=== PATIENT | female | born 1960 | race Caucasian/White ===

== ENCOUNTER 2018-05-30 02:29 | Emergency (ER) | payer OTHER ==
[~2018-05-30] VITALS: Ht 167.6 cm; Wt 86.2 kg
[~2018-05-30 02:29] MED LIST: ? B/P MED; CATAPRES PO; DUONEB 2.5-0.5 M3 ML INH; EFFEXOR XR37.5 MG PO; FLEXERIL PO; LEVAQUIN 500 M500 M2 PO; LISINOPRIL-HCT1 EAC2 PO; MACROBID 100 M100 M1 PO; MONTELUKAST SOD10 MG PO; MUCINEX TA600 MG/TA2 PO; NYSTATIN 1100000 U/M SW&SWALLOW; PREDNISONE 10 M10 MG PO; PROAIR HFA8.5 GM INH; ZESTORETIC 20-1 EAC1 PO
[2018-05-30 03:07] LABS: ABSOLUTE EOSINOPHILS 0.1 thou/uL (0.0-0.7); ABSOLUTE LYMPHOCYTES 2.7 thou/uL (0.8-5.3); ABSOLUTE MONOCYTES 1.1 thou/uL (0.0-1.2); ABSOLUTE NEUTROPHILS 11.7 thou/uL (1.6-8.1); BASOPHILS 0.3 %; EOSINOPHILS 0.4 %; HEMATOCRIT 48.3 % (37.0-47.0); LYMPHOCYTES 17.4 %; MCH 31.7 pg (26.0-34.0); MCHC 33.2 g/dL (28.0-37.0); MCV 95.3 fL (80.0-100.0); MONOCYTES 7.2 %; MPV 8.7 fl. (7.2-11.1); NUCLEATED RBCS 0 /100WBC; PLATELET COUNT* 288 thou/uL (150-400); POLYS 74.7 %; RBC 5.07 mil/uL (4.20-5.00); RDW-CV 16.1 % (10.5-14.5); WBC 15.7 thou/uL (4.0-11.0)
[2018-05-30 03:27] LABS: ANION GAP 4 mmol/L (7-16); BUN 11 mg/dL (7-18); CALCIUM 8.8 mg/dL (8.5-10.1); CHLORIDE 102 mmol/L (98-107); CO2 33 mmol/L (21-32); CREATININE 0.6 mg/dL (0.6-1.3); GLUCOSE 90 mg/dL (70-99); POTASSIUM 3.7 mmol/L (3.5-5.1); SODIUM 139 mmol/L (136-145)
[2018-05-30 03:38] LABS: ALBUMIN 3.2 g/dL (3.4-5.0); ALKALINE PHOSPHATASE 86 U/L (46-116); NT-PRO BRAIN NAT PEPTIDE 63 pg/mL (<300); SGOT 24 U/L (15-37); SGPT 34 U/L (30-65); TOTAL BILIRUBIN 0.3 mg/dL (<0.1-1.0); TOTAL PROTEIN 7.2 g/dL (6.4-8.2); TROPONIN-I LEVEL <0.06 ng/mL (<0.06)
[2018-05-30 05:17] VITALS: BP 134/83
--- NOTE | 2018-05-31 14:46 | EKG ---
[place] [address] ELECTROCARDIOGRAM REPORT Name: KWASI JIMENEZ YONY Room: [facility]#: [id number] Admission: 05/30/18 Attend Phys: Discharge: 05/30/18 Date of : 56 Report #: [id number] THIS REPORT FOR: //name// [facility] ED Test Date: 2018-05-30 Test Time: 02:53:12 Pat Name: KWASI JIMENEZ Department: Room: Gender: F Etl Data Architect: BELLE Padilla : 1960 Requested By: Amy Gee Order Number: [id number] MD: Ramy Calzada Measurements Intervals [place] Rate: 91 P: 73 ID: 164 QRS: 62 QRSD: 97 T: 62 QT: 364 QTc: 448 Interpretive Statements Sinus rhythm RSR' in V1 or V2, probably normal variant Baseline wander in lead(s) I,II,aVR,V6 Compared to ECG 01/02/2016 00:36:18 Sinus tachycardia no longer present Electronically Signed On 05-31-2018 14:45:59 CDT by Ramy Calzada [email or web address] <ELECTRONICALLY SIGNED> By: Ramy Calzada MD, [facility] 05/31/18 1445 0253 0253 Ramy Calzada MD, [facility] /EPI
[2018-05-31] MEDS ORDERED: AZITHROMYCIN 2250 MG (21:15)
[2018-05-31] MEDS ORDERED: PREDNISONE 10 M10 MG (21:15)
[2018-05-31] MEDS ORDERED: VENTOLIN HFA 1818 GM INH (21:15)
[2018-05-31] MEDS ORDERED: SPIRIVA INH (21:16)
[2018-05-31] MEDS ORDERED: BREO ELLIPTA 11 EACH INH (21:16)
[2018-05-31] MEDS ORDERED: PREDNISONE50 MG PO (22:37)
== END 2018-05-30 05:14 | disposition home or self-care (01) ==
LOC: M.ERS 02:29
PROVIDERS: Emergency Medicine
DX: J44.1 Chronic obstructive pulmonary disease with (acute) exacerbation (principal); I10 Essential (primary) hypertension; F17.210 Nicotine dependence, cigarettes, uncomplicated

== ENCOUNTER 2018-05-31 20:56 | Inpatient (IN) | payer OTHER ==
[~2018-05-31] VITALS: Ht 167.6 cm; Wt 94.0 kg
[2018-05-31 21:02] VITALS: BP 139/80
[2018-05-31] MEDS ORDERED: VENTOLIN HFA 1818 GM INH (21:15)
[2018-05-31] MEDS ORDERED: PREDNISONE 10 M10 MG (21:15)
[2018-05-31] MEDS ORDERED: AZITHROMYCIN 2250 MG (21:15)
[2018-05-31] MEDS ORDERED: SPIRIVA INH (21:16)
[2018-05-31] MEDS ORDERED: BREO ELLIPTA 11 EACH INH (21:16)
[2018-05-31 21:47] LABS: HEMATOCRIT 50.7 % (37.0-47.0); HEMOGLOBIN 16.6 gm/dL (12.0-15.0); MCH 31.2 pg (26.0-34.0); MCHC 32.7 g/dL (28.0-37.0); MCV 95.6 fL (80.0-100.0); MPV 8.7 fl. (7.2-11.1); NUCLEATED RBCS 0 /100WBC; PLATELET COUNT* 368 thou/uL (150-400); RDW-CV 15.6 % (10.5-14.5); WBC 20.9 thou/uL (4.0-11.0)
[2018-05-31 21:48] LABS: BE 4.7 mmol/L (-2 to +3); HCO3 30.2 mmol/L (22.0-26.0); PCO2 47.3 mmHg (35.0-45.0); PO2 91.1 mmHg (75.0-100.0); pH 7.423 (7.340-7.450)
[2018-05-31 21:56] LABS: CALCIUM 9.1 mg/dL (8.5-10.1); CREATININE 0.8 mg/dL (0.6-1.3); POTASSIUM 3.4 mmol/L (3.5-5.1)
[2018-05-31 22:01] LABS: ALBUMIN 3.6 g/dL (3.4-5.0); TOTAL BILIRUBIN 0.4 mg/dL (<0.1-1.0); TOTAL PROTEIN 7.7 g/dL (6.4-8.2)
[2018-05-31] MEDS ORDERED: PREDNISONE50 MG PO (22:37)
[2018-05-31 22:41] LABS: ABSOLUTE LYMPHOCYTES 3.1 thou/uL (0.8-5.3); ABSOLUTE MONOCYTES 0.8 thou/uL (0.0-1.2); ABSOLUTE NEUTROPHILS 16.9 thou/uL (1.6-8.1)
[2018-05-31 22:42] LABS: PLATELET ESTIMATE ADEQUATE
[2018-05-31 23:16] VITALS: BP 116/76
[2018-05-31 23:30] VITALS: BP 118/66
[2018-06-01 04:00] VITALS: BP 110/71
--- NOTE | 2018-06-01 04:18 | NUR ---
ASSUMED PT CARE AT 1930, PT IS A&OX4, PT IS TRACING NSR ON THE MONITOR, ON 2L NC. ADMISSION ASSESSMENT COMPLETED CHARTED. IVF INFUSING PER MAR. PT IS UP AD BETO TO THE BR, PT APPEARS TO BE STABLE ON HER FEET. PT DENIES ANY PAIN OR NEEDS AT THIS TIME. RESTING IN BED. BED IN LOW POSITION, CALL LIGHT IN REACH, BED ALARM ON. HOURLY ROUNDING COMPLETED FOR PT SAFETY.
[2018-06-01 08:00] VITALS: BP 129/80
--- NOTE | 2018-06-01 08:54 | NUR ---
ASSESSMENT COMPLETED REFER TO COMPUTER CHARTING. LEAD SOFTWARE QA ENGINEER TRACKING SR. PATIENT REPORTING NO PAIN, NAUSEA OR INCREASED SHORTNESS OF BREATH. BED IN LOW AND LOCKED POSITION. CALL LIGHT WITHIN REACH. IV FLUIDS INFUSING. PATIENT ON 2 LITERS O2 VIA NASAL CANNULA. WILL CONTINUE TO MONITOR THIS SHIFT.
--- NOTE | 2018-06-01 11:32 | NUR ---
SW met with pt to complete initial assessment, introduce self, and SW role. Pt alert, oriented. Pt lives at home with her dtr and both pt and dtr work outside the home at different hours. Pt has had oxygen through [facility] since 2016. Pt's insurance changed to [employer] and pt is unsure whether she would need to change agencies. MELQUIADES called [facility] and found out that [facility] is in network with pt insurance [employer] O and will be in network with [employer] HMO eventually as well. SW to send [facility] a face sheet to provide [facility] with updated information. SW to continue to follow to assist with safe dc planning.
--- NOTE | 2018-06-01 11:50 | CON ---
[address] [address] CONSULTATION Name: KWASI JIMENEZ Room: [place] [address] ADM IN M.R.#: [id number] Admission: 05/31/18 Attend Phys: Alvino Matias MD Discharge: Date of : 56 Report #: [id number] THIS REPORT FOR: //name// CC: [facility] physician/PCP Alvino Matias DATE OF SERVICE: 06/01/2018 REQUESTING PHYSICIAN: Alvino Matias MD REASON FOR CONSULTATION: COPD exacerbation. DISCUSSION: The patient is a 58-year-old woman who has a known history of underlying COPD, though the severity is unknown. She is not steroid dependent. She, however, does have oxygen at home, but has not used it recently as she "did not need it." She began having problems late last week. She was seen by her family physician. She was given a prednisone taper as well as Zithromax. At baseline, she takes Breo 100/25 one inhalation daily, p.r.n. Ventolin inhaler and Spiriva daily. She is not on montelukast. She was seen in the Emergency Department several days ago. That was not feeling much better. They were concerned she had early pneumonia, but declined admission at that time. However, she returned to the Emergency Department yesterday evening as she was feeling much more short of breath. She was using her nebulizer, which was not providing her with enough relief. She was fairly dyspneic when she was seen in the Emergency Department. O2 saturations were in the 80s. She was tachycardic as well as being tachypneic. She had additional imaging done as well as blood gases. It did show some mild hypercapnia. She was given IV steroids, aggressive treatments were started. This morning, she is feeling much better. She has not had any fevers at home. Her sputum has been white, cloudy, at times thick. She has not been using any Mucinex. Our group has seen her previously when she was hospitalized here at [facility] that was several years ago and she was treated for COPD exacerbation at that time. SOCIAL HISTORY: Currently about a half pack of cigarettes per day. She has smoked upwards to a pack and a half per day. Her daughter is an occasional smoker. She has 2 cats and a dog at home. 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 FAMILY HISTORY: Negative for lung disease. Positive for head and neck cancer. PAST MEDICAL HISTORY: Besides her COPD, has a history of hypertension. No [place] [address] CONSULTATION Name: KWASI JIMENEZ Room: [place] [address] ADM IN M.R.#: [id number] Admission: 05/31/18 Attend Phys: Alvino Matias MD Discharge: Date of : 56 Report #: [id number] REVIEW OF SYSTEMS: A 12-point ROS was done. Note positives as above. No true chest pain, but has been tight. No nausea, vomiting, no diarrhea. She has not any hemoptysis. Denies any difficulty swallowing. No reflux type symptoms. She has not had issues with lower extremity edema, but she does note that she has "big ankles." No syncopal episodes, no palpitations. No recent skin rashes. PHYSICAL EXAMINATION: GENERAL APPEARANCE: This is a woman who looks stated age. She is resting in bed, looks fairly comfortable with O2 going via nasal cannula. She is able to speak in full sentences. HEENT: Head is normocephalic and atraumatic. Sclerae nonicteric. Mucous membranes are moist. No thrush is seen. NECK: Negative for adenopathy. No JVD is noted. HEART: Regular rate and rhythm. She is mildly tachycardic. Tones are little distant. No S3 is heard. LUNGS: Sounds are diminished with a prolonged expiratory phase. She has inspiratory and expiratory wheezes heard. Excursion is equal. She does look somewhat hyperinflated. She has no clubbing. Radial pulses are present. ABDOMEN: Mildly obese, but soft, without appreciable hepatosplenomegaly. There is no guarding or rebound tenderness. EXTREMITIES: Lower extremities are negative for edema. No calf tenderness. Scant varicosities. SKIN: Warm and dry. NEUROLOGIC: She is alert and oriented x 3. Affect appears normal. LABORATORY AND X-RAY FINDINGS: Chest x-ray shows some hyperinflation, but no definite infiltrates are noted. Arterial blood gases done on 2 liters last night, she had a pH 7.42, pCO2 of 47, pO2 of 91, bicarbonate is 30 with a saturation of 93%. Carboxyhemoglobin was 2.9%. When she was hospitalized here in December 2015, at that time, her pCO2 was as high as 58. On her chemistry, potassium is 3.4, BUN of 17, creatinine of 0.8. ProBNP was 63. Troponins unremarkable. Lactic acid 1.6. D-dimer was 0.36, which is normal. Coag studies unremarkable. White blood cell count in the ED 2 days ago was 15,700 up to 20,900 last night. Hemoglobin 16.6, hematocrit of 50.7, no left shift. IMPRESSION: 1. Chronic obstructive pulmonary disease exacerbation, it remains bronchospastic and tight, but improved from yesterday evening. Does not appear to have an active pneumonia. May have had a virus as a main trigger. 2. Acute respiratory failure superimposed on chronic respiratory failure. Baseline I suspect she may have some chronic hypoxemia. Note, her hemoglobin and hematocrit are mildly elevated. This could come from chronic hypoxemia. She has not been sleeping with her oxygen or using it. 3. Chronic obstructive pulmonary disease, severity unknown. I suspect [place] [address] CONSULTATION Name: KWASI JIMENEZ Room: [place] [address] ADM IN [facility].#: [id number] Admission: 05/31/18 Attend Phys: Alvino Matias MD Discharge: Date of : 56 Report #: [id number] 4. Ongoing tobacco abuse. 5. History of hypertension. RECOMMENDATIONS: 1. We will add Brovana since she is on Breo at home. Continue with DuoNeb every 4 hours. I will hold on inhaled steroids while she is here as she is getting IV Solu-Medrol. 2. Nicotine patch. 3. We will also add montelukast 10 mg a day. 4. Reassess O2 needs prior to discharge. Even if we can successfully wean her to room air during the day, she may need O2 at night. 5. Long-term smoking cessation is certainly imperative. 6. Also consider full PFTs in the future. 7. Hopefully she will continue to improve and can be discharged home in a timely fashion. <ELECTRONICALLY SIGNED> By: Lurdes Holt MD 06/01/18 1150 0951 [id number] Holt MD /nt
[2018-06-01 12:25] VITALS: BP 130/74
[2018-06-01 16:36] VITALS: BP 129/77
[2018-06-01 20:00] VITALS: BP 128/88
[2018-06-02] VITALS: BP 116/75
[2018-06-02 04:00] VITALS: BP 127/71
--- NOTE | 2018-06-02 05:05 | NUR ---
ASSUMED PT CARE AT 1930, PT IS A&OX4, PT IS TRACING NSR ON THE MONITOR, ON 2L NC SATTING MID TO HIGH 90'S. PT IS FEELING ANXIOUS. BUT DID SLEEP ON AND OFF THROUGHOUT THE NIGHT. IVF INFUSING PER MAR. PT IS UP AD BETO IN HER ROOM AND STABLE ON HER FEET. BED IN LOW POSITION, CALL LIGHT IN REACH, HOURLY ROUNDING COMPLETED FOR PT SAFETY.
[2018-06-02 08:00] VITALS: BP 145/81
[2018-06-02 12:28] VITALS: BP 150/89
--- NOTE | 2018-06-02 13:00 | NUR ---
VSS, ASSUMED CARE IN THE AM, ASSESSMENT PERFORMED AND CHARTED, FALL PRECAUTIONS IN PLACE NAD CALL LIGHT IN REACH, PT IS ON 2L NC AND IS TRACING SR ON THE MONITOR, SHE IS UP AD BETO AND DENIES ANY PAIN, PT GOAL IS TO SIT UP IN CHAIR AND TO IMPROVE HER BREATHING, WILL FOLLOW WITH PLAN OF CARE, ALSO PT SEEMS TO HAVE A LITTLE ANXIETY,
[2018-06-02 17:36] VITALS: BP 149/85
[2018-06-02 20:00] VITALS: BP 154/87
[2018-06-03] VITALS: BP 139/89
[2018-06-03 04:00] VITALS: BP 162/90
--- NOTE | 2018-06-03 06:53 | NUR ---
NO COMPLAINTS. SLEPT THROUGH THE NIGHT. WILL CONT. WITH PLAN OF CARE AT THIS TIME.
[2018-06-03 08:00] VITALS: BP 137/85
--- NOTE | 2018-06-03 10:03 | NUR ---
ASSESSMENT COMPLETED REFER TO COMPUTER CHARTING. TEACHER PRIVATE TRACKING SR. PATIENT REPORTING NO PAIN, NAUSEA OR SHORTNESS OF BREATH. BED IN LOW AND LOCKED POSITION. CALL LIGHT WITHIN REACH. PATIENT ON 2 LITER VIA NASAL CANNULA. IV SALINE LOCKED. PATIENT REPORTING WISHES TO DISCHARGE TODAY. WILL CONTINUE TO MONITOR THIS SHIFT.
[2018-06-03] MEDS ORDERED: AZITHROMYCIN 2250 MG PO (11:57)
[2018-06-03] MEDS ORDERED: SINGULAIR 10 MG10 M1 PO (11:57)
[2018-06-03] MEDS ORDERED: PREDNISONE 10 M10 MG PO (11:57)
[2018-06-03 16:00] VITALS: BP 159/94
[2018-06-03 20:00] VITALS: BP 159/82
--- NOTE | 2018-06-04 03:14 | NUR ---
PATIENT RESTED IN BED, NO ACUTE CHANGES. PATIENT DID NOT SHOW SIGNS OF DISTRESS. PATIENT DID NOT SHOW SIGNS OF SOB. FALL PRECAUTIONS IN PLACE, CALL LIGHT WITH IN REACH.
[2018-06-04 04:00] VITALS: BP 127/68
[2018-06-04 08:00] VITALS: BP 149/93
--- NOTE | 2018-06-04 10:11 | NUR ---
ASSUMED RESPONSIBILITY OF PT THIS AM PT IS ALERT AND ORIENTED FAINT WHEEZING AND RHONCHI UP AD BETO ON 2L NC 92% PT STATES SOME SPUTUM AT TIMES GREENISH/BROWN AND CLEAR AT TIMES 2+ EDEMA TO BILAT FEET/ANKLES TAUNT CALL LIGHT IN REACH REGULAR DIET WITH GOOD APPETITE 'READY TO DISCHARGE'
--- NOTE | 2018-06-04 16:06 | NUR ---
TRANSFER PT DOWN TO ORTHO TO ROOM 113 REPORT GIVEN TO
[2018-06-04 16:24] VITALS: BP 151/94
--- NOTE | 2018-06-04 19:08 | NUR ---
PATIENT ARRIVED TO UNIT AT 1800. ALERT AND ORIENTED X4. UP AD BETO IN ROOM. NO IV AT THIS TIME. DENIES PAIN AND NAUSEA. PATIENT HAS BEEN ORIENTED TO ROOM. VSS ON 2L O2. CALL LIGHT IS WITHIN REACH. NURSING WILL CONTINUE TO MONITOR. AGREE WITH PREVIOUS NURSES CHARTING.
[2018-06-04 22:30] VITALS: BP 142/96
[2018-06-05 01:00] VITALS: BP 128/80
--- NOTE | 2018-06-05 07:04 | NUR ---
ALERT AND ORIENTED X4. NO C/O PAIN. CONTINUES ON BREATHING TREATMENTS. UP AD BETO IN ROOM. ON O2 AT 2L/NC. HAS PRODUCTIVE COUGH. SOME WHEEZES NOTED IN LUNGS. CALL LIGHT WITHIN REACH.
[2018-06-05 08:00] VITALS: BP 148/87
[2018-06-05 12:46] VITALS: BP 148/87
[2018-06-05] MEDS ORDERED: WELLBUTRIN SR100 MG PO (13:10)
--- NOTE | 2018-06-05 21:20 | NUR ---
I ASSUMED CARE OF THE PATIENT AT 0700. SHE IS ALERT AND ORIENTED X 4 AND UP AD BETO. BED IS IN THE LOW LOCKED POSITION AND CALL LIGHT IS IN REACH. HOURLY ROUNDING WAS COMPLETED AND PATIENT NEEDS WERE MET. PAIN IS MANAGED WITH PRN MEDS. SHE WAS DISCHARGED TO HOME WITH SCRIPTS AT 1520. SCRIPTS WERE CALLED INTO [facility] AND WILL BE READY FOR P/U THURSDAY. DISCHARGE WAS EXPLAINED AND PATIENT WAS WALKED OUT.
== END 2018-06-05 15:20 | disposition home or self-care (01) | DRG 871 ==
LOC: M.ERS 20:56 → M.TBA-ER 22:50 → M.2W 22:50 → M.ORTHSURG 06-04 17:55
PROVIDERS: Personal Emergency Response Attendant; ADMIT Internal Medicine
DX: A41.9 Sepsis, unspecified organism (principal); J96.20 Acute and chronic respiratory failure, unspecified whether with hypoxia or hypercapnia; J44.1 Chronic obstructive pulmonary disease with (acute) exacerbation; I10 Essential (primary) hypertension; F17.210 Nicotine dependence, cigarettes, uncomplicated; E66.9 Obesity, unspecified; Z71.6 Tobacco abuse counseling; Z99.81 Dependence on supplemental oxygen; Z79.899 Other long term (current) drug therapy; Z80.8 Family history of malignant neoplasm of other organs or systems; Z68.33 Body mass index [BMI] 33.0-33.9, adult

== ENCOUNTER 2018-12-06 14:23 | Inpatient (IN) | payer OTHER ==
[~2018-12-06] VITALS: Ht 167.6 cm; Wt 91.6 kg
[~2018-12-06 14:23] MED LIST changes: +AZITHROMYCIN 2250 MG; +AZITHROMYCIN 2250 MG PO; +BREO ELLIPTA 11 EACH INH; +PREDNISONE 10 M10 MG; +PREDNISONE50 MG PO; +SINGULAIR 10 MG10 M1 PO; +SPIRIVA INH; +VENTOLIN HFA 1818 GM INH; +WELLBUTRIN SR100 MG PO
[2018-12-06 14:24] VITALS: BP 151/107; BP 164/140
[2018-12-06 14:44] LABS: HEMATOCRIT 52.3 % (37.0-47.0); HEMOGLOBIN 17.4 gm/dL (12.0-15.0); MCH 31.3 pg (26.0-34.0); MCHC 33.2 g/dL (28.0-37.0); MCV 94.3 fL (80.0-100.0); MPV 8.5 fl. (7.2-11.1); NUCLEATED RBCS 0 /100WBC; PLATELET COUNT* 351 thou/uL (150-400); RBC 5.55 mil/uL (4.20-5.00); RDW-CV 14.2 % (10.5-14.5); WBC 18.1 thou/uL (4.0-11.0)
[2018-12-06 14:56] LABS: ANION GAP 5 mmol/L (7-16); BUN 13 mg/dL (7-18); CALCIUM 8.9 mg/dL (8.5-10.1); CHLORIDE 96 mmol/L (98-107); CO2 36 mmol/L (21-32); CREATININE 0.9 mg/dL (0.6-1.3); GLUCOSE 190 mg/dL (70-99); POTASSIUM 4.4 mmol/L (3.5-5.1); SODIUM 137 mmol/L (136-145)
[2018-12-06 15:08] LABS: ALBUMIN 3.5 g/dL (3.4-5.0); ALKALINE PHOSPHATASE 103 U/L (46-116); NT-PRO BRAIN NAT PEPTIDE 1733 pg/mL (<300); SGOT 62 U/L (15-37); SGPT 112 U/L (30-65); TOTAL BILIRUBIN 0.4 mg/dL (<0.1-1.0); TROPONIN-I LEVEL <0.06 ng/mL (<0.06)
[2018-12-06 15:29] LABS: ABSOLUTE LYMPHOCYTES 1.4 thou/uL (0.8-5.3); ABSOLUTE MONOCYTES 0.4 thou/uL (0.0-1.2); ABSOLUTE NEUTROPHILS 16.3 thou/uL (1.6-8.1); ATYPICAL LYMPHS 2 %; PLATELET ESTIMATE ADEQUATE
--- NOTE | 2018-12-06 16:18 | NUR ---
PT ASKING FOR DINNER. INFORMED OF NPO STATUS UNTIL SEEN BY DR LI PER DR LI
[2018-12-06 18:26] VITALS: BP 152/85
[2018-12-06 18:52] VITALS: BP 180/101
--- NOTE | 2018-12-06 19:08 | NUR ---
PT TO UNIT AT APPROX 1830. NOTIFIED OF ELEVATED BP AND POSITIVE SEPSIS SCREEN.
[2018-12-06 20:00] VITALS: BP 152/85
[2018-12-06 21:03] LABS: URINE BILIRUBIN NEGATIVE (Negative); URINE BLOOD TRACE (Negative); URINE CLARITY CLEAR; URINE COLOR YELLOW; URINE GLUCOSE-RANDOM NEGATIVE (Negative); URINE KETONES NEGATIVE (Negative); URINE LEUKOCYTES-REFLEX NEGATIVE (Negative); URINE NITRITE-REFLEX NEGATIVE (Negative); URINE PROTEIN NEGATIVE (Negative); URINE UROBILINOGEN 0.2 E.U./dl (0.2-1.0)
[2018-12-06 21:45] LABS: BE 2.1 mmol/L (-2 to +3); HCO3 28.9 mmol/L (22.0-26.0); PO2 95.7 mmHg (75.0-100.0); pH 7.359 (7.340-7.450)
[2018-12-06 21:58] LABS: PCO2 52.4 mmHg (35.0-45.0)
[2018-12-07] VITALS: BP 134/67
[2018-12-07 02:14] LABS: AMP/METHAMP Negative (Negative); BARBITURATES Negative (Negative); BENZODIAZEPINES Negative (Negative); COCAINE Negative (Negative); METHADONE Negative (Negative); OPIATES Negative (Negative); PCP Negative (Negative); THC Negative (Negative)
[2018-12-07 04:00] VITALS: BP 130/75
[2018-12-07 06:05] LABS: ABSOLUTE LYMPHOCYTES 0.7 thou/uL (0.8-5.3); ABSOLUTE MONOCYTES 0.2 thou/uL (0.0-1.2); ABSOLUTE NEUTROPHILS 11.8 thou/uL (1.6-8.1); BASOPHILS 0.1 %; HEMATOCRIT 45.2 % (37.0-47.0); LYMPHOCYTES 5.9 %; MCH 31.6 pg (26.0-34.0); MCHC 33.2 g/dL (28.0-37.0); MCV 95.3 fL (80.0-100.0); MONOCYTES 1.6 %; MPV 8.6 fl. (7.2-11.1); NUCLEATED RBCS 0 /100WBC; POLYS 92.4 %; RBC 4.74 mil/uL (4.20-5.00); RDW-CV 14.4 % (10.5-14.5); WBC 12.7 thou/uL (4.0-11.0)
[2018-12-07 06:11] LABS: PLATELET COUNT* 269 thou/uL (150-400)
[2018-12-07 06:39] LABS: CALCIUM 8.3 mg/dL (8.5-10.1); CREATININE 0.8 mg/dL (0.6-1.3)
[2018-12-07 07:30] VITALS: BP 131/82
--- NOTE | 2018-12-07 07:54 | NUR ---
RECIEVED REPORT FROM [facility] PAULETTE NIEVES. SCREENED SEPSIS PER REPORT AND WAS NOTIFIED AND ORDERS WERE INITIATED ON DAY SHIFT. PT WAS MILD SOA "A LITTLE WORES THAN NORMAL BUT BETTER THAN WHEN I GOT HERE." SHE REPORTED. STATED SHE HAD BEEN TO HER PCP A FEW DAYS AGO AND STARTED PREDNISONE AND ORAL ABX- BUT STILL HAVING MORE SOA THAN NORMAL. LUNG SOUNDS WHEEZES BUT NO CRACKLES. CXR CLEAR AND PT DENIED HX OF CHF. STARTED 1L NS BOLUS PER ORDER AND NOTIFIED PT TO CALL IF SOA WORSENS OR HAS ANY CHEST PAIN. APPROX 700CC OF BOLUS INFUSED WHEN PT CALLED W SEVERE SOA AND TURNNIG PURPLE; SITTING ON EDGE OF BED LEANING FORWARD STATING "I CAN'T BREATHE." IMMEDIATELY STOPPED BOLUS. PT OT SAT HAD DROPPED FROM 93% TO 84%. TITRATED 02 TO 90% AT 10 L AND NOTIFIED RT AND NURSING FIRE PREVENTION INSPECTOR STAT. PT IMMEDIATELY SHOWED IMPOVEMENT WITH SKIN RETURNING TO NORMAL PINKISH COLOR AND IMPROVED RESPIRATORY EFFORT WITHIN 2-3 MIN OF STOPPING FLUIDS AND TITRATING O2.. PT STATED "THANKYOU I FEEL SO MUCH BETTER NOW." CXR AND ABG ORDERED AND NURSING FIRE PREVENTION INSPECTOR SPOKE W DR ORDONEZ CONCERNING THESE FINDINGS. MONITIORED PT'S VITALS AND TITRATED FLUIDS TO WHAT PT COULD TOLERATED WITH HER SOA. PT WAS ALSO GIVEN PRN ATIVAN. PT SOON RELAXED AND WAS ABLE TO FALL ASLEEP. PT CONSISTENTLY REMAINED HER "BASELINE" BREATHING PATTERN AND COMFORT, O2 TITRATED TO 4 L SPO2 LOW 90'S, AFEBRILE, BP 130/80'S, AND HR 90'S REMAINER OF SHIFT. PT HAD NO MORE RESPIRATORY DISTRESS EPISODES. ABOVE FINDINGS REPORTED TO WILLY NIEVES.
--- NOTE | 2018-12-07 08:57 | EKG ---
[place] [address] ELECTROCARDIOGRAM REPORT Name: KWASI JIMENEZ Room: [address] ADM IN .R.#: [id number] Admission: 12/06/18 Attend Phys: Case Aponte MD Discharge: Date of : 56 Report #: [id number] THIS REPORT FOR: //name// [facility] ED Test Date: 2018-12-06 Test Time: 14:43:25 Pat Name: KWASI JIMENEZ Department: Room: [facility] Gender: F Project Management Professor: OWEN : 1960 Requested By: Jonathon Luque Order Number: [id number] MD: Ramy Calzada Measurements Intervals [place] Rate: 113 P: 74 AR: 140 QRS: 74 QRSD: 107 T: 64 QT: 323 QTc: 443 Interpretive Statements Sinus tachycardia Low voltage, extremity and precordial leads RSR' in V1 or V2, right VCD or RVH Nonspecific T abnormalities, anterior leads Compared to ECG 05/30/2018 02:53:12 Low QRS voltage now present T-wave abnormality now present Sinus rhythm no longer present Electronically Signed On 12-07-2018 8:57:26 RN DIABETES EDUCATOR by Ramy Calzada [email or web address] <ELECTRONICALLY SIGNED> By: Ramy Calzada MD, [facility] 12/07/18 0857 1443 1443 Ramy Calzada MD, [facility] /EPI
--- NOTE | 2018-12-07 10:25 | NUR ---
RECEIVED PT CARE 0700. SHE IS AWAKE/ALERT AND ORIENTED X4. VSS. RESOURCE PARAPROFESSIONAL TRACING SR. SHE DENIES PAIN. O2 SAT 96% ON 4L NC. SHE STATES SHE USUALLY WEARS 2L NC AT HOME. AM ASSESSMENT CHARTED. MEDS GIVEN PER MAR. UP WITH STANDBY ASSIST. CALL LIGHT WITHIN REACH. WILL CONTINUE TO MONITOR.
[2018-12-07 12:03] VITALS: BP 127/67
--- NOTE | 2018-12-07 14:45 | NUR ---
Pt is A&O. Resides at home, her dtr lives with her. Independent and active. Pt wears home o2 through [facility] and also has a neb. No hx of HH or SNF. Goal is home at [place]. PT is recommending a RW for Pt, CM to fax referral and order to Vanessa at [facility], Pt in agreement with RW. Pt requested handicapped placard info, CM printed and provided to Pt, informed that she would need to have her PCP complete and sign the form.
--- NOTE | 2018-12-07 14:58 | 2DMMODE ---
[place] [address] 2 D/M-MODE ECHOCARDIOGRAM Name: KWASI JIMENEZ Room: [address] IN [facility]#: [id number] Admission: 12/06/18 Attend Phys: Case Aponte MD Discharge: Date of : 56 Date of Service: 12/07/18 1458 Report #: [id number] THIS REPORT FOR: //name// APPROVED REPORT Study performed: 12/07/2018 10:56:43 EXAM: Comprehensive 2D, Doppler, and color-flow Echocardiogram Patient Location: In-Patient Room #: 214 Status: routine BSA: 2.00 HR: 102 bpm BP: 131/82 mmHg Rhythm: NSR Other Information Study Quality: Good Indications COPD 2D Dimensions IVSd: 11.02 (7-11mm) LVOT Diam: 19.00 (18-24mm) LVDd: 44.18 mm PWd: 10.43 (7-11mm) Ascending Ao: 31.06 (22-36mm) LVDs: 23.99 (25-40mm) Aortic Root: 30.08 mm Volumes Left Atrial Volume (Systole) LA ESV Index: 16.90 mL/m2 Aortic Valve AoV Peak Yonas.: 1.73 m/s AO Peak Gr.: 11.98 mmHg LVOT Max P.37 mmHg AO Mean Gr.: 6.99 mmHg LVOT Mean P.95 mmHg LVOT Max V: 1.53 m/s AO V2 VTI: 29.88 cm LVOT Mean V: 1.04 m/s CARLA (VTI): 2.75 cm2 LVOT V1 VTI: 29.01 cm Mitral Valve E/A Ratio: 0.69 MV Decel. Time: 182.33 ms MV E Max Yonas.: 0.94 m/[place] [address] 2 D/M-MODE ECHOCARDIOGRAM Name: KWASI JIMENEZ Room: [address] IN .R.#: [id number] Admission: 12/06/18 Attend Phys: Case Aponte MD Discharge: Date of : 56 Date of Service: 12/07/18 1458 Report #: [id number] MV PHT: 52.88 ms MVA (PHT): 4.16 cm2 TDI E/Lateral E': 9.40 E/Medial E': 8.55 Medial E' Yonas.: 0.11 m/s Lateral E' Yonas.: 0.10 m/s Pulmonary Valve PV Peak Yonas.: 1.29 m/s PV Peak Gr.: 6.63 mmHg Tricuspid Valve RAP Estimate: 5.00 mmHg TR Peak Gr.: 30.52 mmHg RVSP: 35.00 mmHg PA Pressure: 35.00 mmHg Left Ventricle The left ventricle is normal size. There is normal LV segmental wall motion. There is normal left ventricular wall thickness. Left ventricular systolic function is normal. The left ventricular ejection fraction is within the normal range. LVEF is 65-70%. Grade I - abnormal relaxation pattern. Right Ventricle The right ventricle is normal size. The right ventricular systolic function is normal. Atria The left atrium size is normal. The right atrium size is normal. Aortic Valve The aortic valve is normal in structure. No aortic regurgitation is present. There is no aortic valvular stenosis. Mitral Valve The mitral valve is normal in structure. There is no mitral valve regurgitation noted. No evidence of mitral valve stenosis. Tricuspid Valve The tricuspid valve is normal in structure. Trace tricuspid regurgitation. Mild pulmonary hypertension. Pulmonic Valve Pulmonic valve is not well visualized. There is no pulmonic valvular [place] [address] 2 D/M-MODE ECHOCARDIOGRAM Name: KWASI JIMENEZ Room: [address] IN ..#: [id number] Admission: 12/06/18 Attend Phys: Case Aponte MD Discharge: Date of : 56 Date of Service: 12/07/18 1458 Report #: [id number] Great Vessels The aortic root is normal in size. IVC is normal in size and collapses >50% with inspiration. Pericardium There is no pericardial effusion. <Conclusion> Left ventricular systolic function is normal. The left ventricular ejection fraction is within the normal range. <ELECTRONICALLY SIGNED> By: Ramy Calzada MD, [facility] 12/07/18 1458 1458 1458 Ramy Calzada MD, [facility] /INF
[2018-12-07 16:13] VITALS: BP 133/76
[2018-12-07 19:11] LABS: GLYCOHEMOGLOBIN (HGB A1C) 5.8 % (4.8-5.6)
[2018-12-07 20:00] VITALS: BP 122/60
[2018-12-08] VITALS: BP 128/58
[2018-12-08 04:00] VITALS: BP 139/82
[2018-12-08 08:00] VITALS: BP 126/75
[2018-12-08 11:51] VITALS: BP 105/72
--- NOTE | 2018-12-08 19:17 | NUR ---
PT ALERT AND ORIENTED. PT IS ON 3 LITERS O2 BY NASAL CANNULA. RT UPPER ARM MIDLINE WITH ANTIBIITIC RUNNING. FALL RISK PRECAUITONS IN PLACE. HOURLY ROUNDING COMPLETED. WILL CONTINUE TO MONITOR.
[2018-12-08 20:00] VITALS: BP 128/72
--- NOTE | 2018-12-09 04:54 | NUR ---
ASSUMED CARE OF PT AT 1900 PT ALERT AND ORIENTED X4 VS AND ASSESSMENT STABLE. PT HAD PRN LORAZEPAM BEFORE GOING TO BED THEN SLEPT THROUGH THE NIGHT. WILL CONTINUE PLAN OF CARE.
[2018-12-09 05:03] LABS: HEMATOCRIT 45.3 % (37.0-47.0); HEMOGLOBIN 14.6 gm/dL (12.0-15.0); MCH 30.9 pg (26.0-34.0); MCHC 32.3 g/dL (28.0-37.0); MCV 95.4 fL (80.0-100.0); MPV 8.2 fl. (7.2-11.1); RBC 4.75 mil/uL (4.20-5.00); RDW-CV 14.5 % (10.5-14.5)
[2018-12-09 05:16] LABS: CALCIUM 8.4 mg/dL (8.5-10.1); CREATININE 0.7 mg/dL (0.6-1.3); MAGNESIUM 2.5 mg/dL (1.8-2.4); POTASSIUM 4.4 mmol/L (3.5-5.1)
[2018-12-09 08:00] VITALS: BP 132/80
[2018-12-09] MEDS ORDERED: PREDNISONE 10 M10 M1 PO (10:38)
[2018-12-09] MEDS ORDERED: LEVAQUIN 750 M750 MG PO (10:38)
--- NOTE | 2018-12-09 12:47 | CON ---
[address] [address] CONSULTATION Name: KWASI JIMENEZ Room: [address] IN ..#: [id number] Admission: 12/06/18 Attend Phys: Case Aponte MD Discharge: Date of : 56 Report #: [id number] THIS REPORT FOR: //name// CC: [facility] physician/PCP Case Aponte HISTORY OF PRESENT ILLNESS: This is a 58-year-old female patient with history of smoking, actively smokes around 10 cigarettes per day and history of COPD. She has oxygen at home, but she told me she does not use it regularly. She had increasing shortness of breath a couple of weeks ago that improved spontaneously, but last Thursday after she started shoveling some snow, she started feeling more shortness of breath. 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 A week ago, she saw her primary care physician who gave her a course of azithromycin and prednisone without any help in her symptoms. She ended up coming to the ER and admitted for treatment of COPD exacerbation. She denied any headache or blurring of vision. She denied any fever. She denied any PND. She denied any orthopnea. She denies any lower extremity edema or pain or weight change. The patient was hospitalized at this facility twice for COPD exacerbation. The last hospitalization was in 05/2018. She has never seen a digital campaign specialist, and she is not sure how severe her COPD is. She had rare sputum production, colored. She is not sure about the color, although it is improving. SOCIAL HISTORY: She continues to smoke 10 cigarettes per day. She has 2 cats at home. 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 FAMILY HISTORY: Positive for neck cancer. PAST MEDICAL HISTORY: COPD, hypertension. REVIEW OF SYSTEMS: A 10-point review of system was done, negative unless mentioned above. PAST SURGICAL HISTORY: No major chest surgery. FAMILY HISTORY: Reviewed with the patient, as above. PHYSICAL EXAMINATION: VITAL SIGNS: She was on 4 L oxygen with saturation more than 90%, blood pressure of 130/82, pulse rate of 104, afebrile, overweight lady with BMI of 32.8. HEENT: Head normocephalic, atraumatic. Pupils reactive to light. Oral cavity, [place] [address] CONSULTATION Name: KWASI JIMENEZ Room: [address] IN [facility]#: [id number] Admission: 12/06/18 Attend Phys: Case Aponte MD Discharge: Date of : 56 Report #: [id number] moist mucous membrane. Mallampati of 2-3. NECK: Supple. Full range of movement. No masses felt. Trachea central. External ear looks okay and normal. Nasal cavity patent passages. CHEST: Diminished air movement bilaterally, prolonged expiratory phase with expiratory wheeze. Symmetrical expansion. Nontender to palpation. HEART: S1, S2, no murmur. ABDOMEN: Soft, lax, nontender, positive bowel sounds. No masses felt. LOWER EXTREMITIES: No edema, no calf tenderness. PSYCHIATRIC: Mood and affect slightly anxious. NEUROLOGIC: Awake, alert, oriented. Moving 4 extremities spontaneously. No focal weakness. Cranial nerves are grossly normal. LYMPHATICS: No palpable lymph node. SKIN: Normal for age and race. No rash. LABORATORY DATA: Her chest x-ray in the ER did not show acute pathology. Her ABGs 7.35/52/95. This was done on 4 liter oxygen. Her D-dimer was not elevated. Her BUN of 13, creatinine of 0.8, potassium 4. Her BNP is elevated at 1700. IMPRESSION: 1. Omabt-zb-mlkcjne hypoxic and hypercapnic respiratory failure. 2. Chronic obstructive pulmonary disease exacerbation. 3. Active smoker. At this point, the patient will be on IV steroids, continue antibiotics and scheduled nebulization treatment. She is reporting improvement with IV medications. I did group counselor her about smoking cessation. She would benefit from outpatient PFT since we do not know her baseline status. At baseline, she is on Breo, Spiriva and scheduled nebulization treatment at home. Thank you for the consult. We will follow along with you. <ELECTRONICALLY SIGNED> By: Na Castro MD 12/09/18 1247 1028 1212Dcandice Castro MD /nt
[2018-12-09 13:47] VITALS: BP 132/80
[2018-12-09 14:57] VITALS: BP 132/80
--- NOTE | 2018-12-09 15:26 | NUR ---
WAREHOUSE OPERATIONS ASSOCIATE SPOKE TO THE PATIENT TO DISCUSS DISCHARGE PLANNING NEEDS. LYDIA INFORMS THAT SHE WILL NEED [facility] TO BRING A TANK TO THE HOSPITAL TO GO HOME WITH. R.T. TESTING INFORMS OF NEED TO INCREASE PATIENT LITER FLOW TO 3L AT REST AND 6L WITH ACTIVITY. D/C HEEL EMERY BUFFER CONTACTED [facility] TO INFORM OF THE NEED TO DELIVER A TANK TO THE HOSPITAL, AND FAXED THE PATIENT'S R.T. TESTING. [facility] TO DELIVER AN OXYGEN TO THE PATIENT ROOM. PATIENT'S DTR TO PROVIDE TRANSPORT HOME FOR THE PATIENT. CM WILL REMAIN AVAILABLE TO ASSIST AND FOLLOW NEEDED.
[2018-12-09 17:48] VITALS: BP 132/80
--- NOTE | 2018-12-09 17:53 | NUR ---
PT REMAINED ALERT AND ORIENTED. DISCHARGE INFORMATION AND CARE NOTES GIVEN CALLED IN PRESCRIPTIONS. IV REMOVED. OXYGEN TANK DELIVERED FOR PT TO TAKE HOME. PT BELONGINGS GATHERED. PT LEFT VIA WHEELCHAIR WITH NURSING STAFF AND DAUGHTER TO HOME.
== END 2018-12-09 17:57 | disposition home or self-care (01) | DRG 871 ==
LOC: M.ERS 14:23 → M.TBA-ER 15:34 → M.2W 15:34 → M.ORTHSURG 12-08 18:37
PROVIDERS: Emergency Medicine Emergency Medical Services; ADMIT Family Medicine
DX: A41.9 Sepsis, unspecified organism (principal); J96.21 Acute and chronic respiratory failure with hypoxia; J96.22 Acute and chronic respiratory failure with hypercapnia; I50.31 Acute diastolic (congestive) heart failure; J44.1 Chronic obstructive pulmonary disease with (acute) exacerbation; I13.0 Hypertensive heart and chronic kidney disease with heart failure and stage 1 through stage 4 chronic kidney disease, or unspecified chronic kidney disease; R65.20 Severe sepsis without septic shock; N18.2 Chronic kidney disease, stage 2 (mild); I27.20 Pulmonary hypertension, unspecified; F17.210 Nicotine dependence, cigarettes, uncomplicated; Z79.51 Long term (current) use of inhaled steroids; Z99.81 Dependence on supplemental oxygen; Z79.899 Other long term (current) drug therapy; Z80.9 Family history of malignant neoplasm, unspecified; Z71.6 Tobacco abuse counseling

== ENCOUNTER 2019-01-28 11:02 | Emergency (ER) | payer OTHER ==
[~2019-01-28] VITALS: Ht 167.6 cm; Wt 85.7 kg
[~2019-01-28 11:02] MED LIST changes: +LEVAQUIN 750 M750 MG PO; +PREDNISONE 10 M10 M1 PO
[2019-01-28 11:45] LABS: ABSOLUTE BASOPHILS 0.1 thou/uL (0.0-0.2); ABSOLUTE EOSINOPHILS 0.1 thou/uL (0.0-0.7); ABSOLUTE MONOCYTES 0.6 thou/uL (0.0-1.2); ABSOLUTE NEUTROPHILS 6.9 thou/uL (1.6-8.1); BASOPHILS 0.6 %; EOSINOPHILS 0.6 %; HEMATOCRIT 44.6 % (37.0-47.0); HEMOGLOBIN 15.2 gm/dL (12.0-15.0); LYMPHOCYTES 12.1 %; MCH 31.8 pg (26.0-34.0); MCV 93.4 fL (80.0-100.0); MONOCYTES 6.9 %; NUCLEATED RBCS 0 /100WBC; PLATELET COUNT* 287 thou/uL (150-400); POLYS 79.8 %; RBC 4.77 mil/uL (4.20-5.00); RDW-CV 15.7 % (10.5-14.5); WBC 8.7 thou/uL (4.0-11.0)
[2019-01-28 11:57] LABS: APTT 25.8 Seconds (25.0-31.3); INR 1.1; PROTIME 11.1 Seconds (9.20-11.50)
[2019-01-28 12:07] LABS: ANION GAP 6 mmol/L (7-16); BUN 5 mg/dL (7-18); CALCIUM 8.7 mg/dL (8.5-10.1); CHLORIDE 98 mmol/L (98-107); CO2 34 mmol/L (21-32); CREATININE 0.7 mg/dL (0.6-1.3); GLUCOSE 125 mg/dL (70-99); POTASSIUM 4.1 mmol/L (3.5-5.1); SODIUM 138 mmol/L (136-145); TROPONIN-I LEVEL <0.06 ng/mL (<0.06)
[2019-01-28 12:08] LABS: ALBUMIN 3.3 g/dL (3.4-5.0); ALKALINE PHOSPHATASE 100 U/L (46-116); NT-PRO BRAIN NAT PEPTIDE 51 pg/mL (<300); SGOT 26 U/L (15-37); SGPT 26 U/L (30-65); TOTAL BILIRUBIN 0.3 mg/dL (<0.1-1.0)
[2019-01-28 12:55] LABS: BE 1.3 mmol/L (-2 to +3); PCO2 43.9 mmHg (35.0-45.0); pH 7.399 (7.340-7.450)
[2019-01-28] MEDS ORDERED: MEDROLDOSEPACK PO (14:01)
[2019-01-28] MEDS ORDERED: XANAX 0.25 MG0.25 MG PO (14:01)
[2019-01-28] MEDS ORDERED: AZITHROMYCIN 2250 MG PO (14:01)
[2019-01-28 14:45] VITALS: BP 145/76
--- NOTE | 2019-01-29 17:36 | EKG ---
[place] [address] ELECTROCARDIOGRAM REPORT Name: KWASI JIMENEZ Room: [facility]#: [id number] Admission: 01/28/19 Attend Phys: Discharge: 01/28/19 Date of : 56 Report #: [id number] THIS REPORT FOR: //name// [facility] ED Test Date: 2019-01-28 Test Time: 11:15:51 Pat Name: KWASI JIMENEZ Department: Room: Gender: F Peritoneal Dialysis Registered Nurse: Randy ALEMAN : 1960 Requested By: Dago Watts Order Number: [id number] MD: Jose Ashford Measurements Intervals [place] Rate: 101 P: 73 MA: 130 QRS: 67 QRSD: 93 T: 62 QT: 363 QTc: 471 Interpretive Statements Sinus tachycardia Borderline low voltage, extremity leads Baseline wander in lead(s) III,aVL Compared to ECG 12/06/2018 14:43:25 Right ventricular hypertrophy no longer present T-wave abnormality no longer present Electronically Signed On 01-29-2019 17:35:59 CDT by Jose Ashford [email or web address] <ELECTRONICALLY SIGNED> By: Jose Ashford MD, FAC 01/29/19 1735 1115 1115 Jose Ashford MD, FAC /EPI
[2019-01-31] MEDS ORDERED: BREO ELLIPTA 21 EACH (21:15)
== END 2019-01-28 14:35 | disposition home or self-care (01) ==
LOC: M.ERS 11:02
PROVIDERS: Emergency Medicine
DX: J44.1 Chronic obstructive pulmonary disease with (acute) exacerbation (principal); I12.9 Hypertensive chronic kidney disease with stage 1 through stage 4 chronic kidney disease, or unspecified chronic kidney disease; N18.2 Chronic kidney disease, stage 2 (mild); J96.10 Chronic respiratory failure, unspecified whether with hypoxia or hypercapnia; F17.210 Nicotine dependence, cigarettes, uncomplicated

== ENCOUNTER 2019-01-31 20:39 | Inpatient (IN) | payer OTHER ==
[~2019-01-31] VITALS: Ht 167.6 cm; Wt 86.2 kg
[~2019-01-31 20:39] MED LIST changes: +MEDROLDOSEPACK PO; +XANAX 0.25 MG0.25 MG PO
[2019-01-31 20:41] VITALS: BP 173/85
[2019-01-31 20:55] LABS: ABSOLUTE BASOPHILS 0.1 thou/uL (0.0-0.2); ABSOLUTE EOSINOPHILS 0.1 thou/uL (0.0-0.7); ABSOLUTE LYMPHOCYTES 2.5 thou/uL (0.8-5.3); ABSOLUTE MONOCYTES 1.1 thou/uL (0.0-1.2); ABSOLUTE NEUTROPHILS 11.9 thou/uL (1.6-8.1); BASOPHILS 0.8 %; EOSINOPHILS 0.4 %; HEMATOCRIT 47.6 % (37.0-47.0); HEMOGLOBIN 15.7 gm/dL (12.0-15.0); LYMPHOCYTES 16.2 %; MCH 31.4 pg (26.0-34.0); MCHC 32.9 g/dL (28.0-37.0); MCV 95.5 fL (80.0-100.0); MONOCYTES 6.8 %; MPV 7.8 fl. (7.2-11.1); NUCLEATED RBCS 0 /100WBC; PLATELET COUNT* 343 thou/uL (150-400); POLYS 75.8 %; RBC 4.99 mil/uL (4.20-5.00); RDW-CV 15.9 % (10.5-14.5); WBC 15.7 thou/uL (4.0-11.0)
[2019-01-31 21:10] LABS: INR 1.1; PROTIME 11.2 Seconds (9.20-11.50)
[2019-01-31] MEDS ORDERED: BREO ELLIPTA 21 EACH INH (21:15)
[2019-01-31 21:28] LABS: BE 3.8 mmol/L (-2 to +3); pH 7.359 (7.340-7.450)
[2019-01-31 21:30] LABS: PCO2 56.2 mmHg (35.0-45.0); PO2 130.4 mmHg (75.0-100.0)
[2019-01-31 21:31] LABS: ALBUMIN 3.5 g/dL (3.4-5.0); ALKALINE PHOSPHATASE 86 U/L (46-116); ANION GAP 5 mmol/L (7-16); BUN 12 mg/dL (7-18); CALCIUM 8.8 mg/dL (8.5-10.1); CHLORIDE 100 mmol/L (98-107); CO2 33 mmol/L (21-32); CREATININE 0.7 mg/dL (0.6-1.3); GLUCOSE 110 mg/dL (70-99); NT-PRO BRAIN NAT PEPTIDE 66 pg/mL (<300); POTASSIUM 3.9 mmol/L (3.5-5.1); SGOT 32 U/L (15-37); SGPT 34 U/L (30-65); SODIUM 138 mmol/L (136-145); TOTAL BILIRUBIN 0.3 mg/dL (<0.1-1.0); TOTAL PROTEIN 7.2 g/dL (6.4-8.2); TROPONIN-I LEVEL <0.06 ng/mL (<0.06)
[2019-02-01 00:07] VITALS: BP 132/87
[2019-02-01 00:15] VITALS: BP 136/87
--- NOTE | 2019-02-01 02:36 | NUR ---
PT ADMITTED TO ROOM 103 AT 0015 FOR EXACERBATION COPD AND RIGHT LOWER LOBE PNEUMONIA. PT ON 5 LITERS O2 WITH SAT 96%. PT REPORTS BEING ANXIOUS. DR HILDA COELHO. RECIEVED ORDER FOR PRN XANAX. CALL LIGHT IN REACH. PT USING PROPERLY.
--- NOTE | 2019-02-01 05:23 | NUR ---
pt maintained o2 sat 91-95% on o2 at 5 liters per nasal canula. pt recieved IV rocephin and zithromax for treatment of right lower lobe pneumonia. pt recieved one dose of iv solumedrol en route to ED. pt's respirations even and non labored. pt recieving breathing treatments Q4 hrs. vital signs within normal limits. will continue plan of care.
[2019-02-01 08:30] VITALS: BP 119/77
[2019-02-01 16:26] VITALS: BP 121/79
--- NOTE | 2019-02-01 17:07 | EKG ---
[place] [address] ELECTROCARDIOGRAM REPORT Name: KWASI JIMENEZ Room: [address] ADM IN M.R.#: [id number] Admission: 01/31/19 Attend Phys: Luiza Shah Discharge: Date of : 56 Report #: [id number] THIS REPORT FOR: //name// [facility] ED Test Date: 2019-01-31 Test Time: 21:03:37 Pat Name: KWASI JIMENEZ Department: Room: [facility] Gender: F Bilingual Trainer: EMERITA : 1960 Requested By: Amy Gee Order Number: [id number] MD: Jose Ashford Measurements Intervals [place] Rate: 107 P: 68 DE: 144 QRS: 56 QRSD: 91 T: 58 QT: 347 QTc: 463 Interpretive Statements Sinus tachycardia RSR' in V1 or V2, right VCD or RVH Compared to ECG 01/28/2019 11:15:51 Right ventricular hypertrophy now present RSR' in V1 or V2 now present Electronically Signed On 02-01-2019 17:07:37 CDT by Jose Ashford [email or web address] <ELECTRONICALLY SIGNED> By: Jose Ashford MD, FACC 02/01/19 1707 02 02 Jose Ashford MD, FACC /EPI
--- NOTE | 2019-02-01 20:18 | NUR ---
I ASSUMED CARE OF THE PATIENT AT 0700. SHE IS ALERT AND ORIENTED X4 AND IS UP AD BETO. SHE IS ON 4-5 LITERS OF OXYGEN AT HOME AND 5 LITERS HERE. A NEW IV WAS PLACED AND CHARTED. BED IS IN THE LOW LOCKED POSITION AND CALL LIGHT WAS IN REACH. HOURLY ROUNDING WAS COMPLETED AND PATIENT NEEDS ARE MET. PAIN IS DENIED. PATIENT IS PROGRESSING TOWARD GOALS. WILL CONTINUE TO MONITOR.
[2019-02-01 21:20] VITALS: BP 119/59
[2019-02-01 23:45] VITALS: BP 126/75
[2019-02-02 04:20] LABS: MCH 31.1 pg (26.0-34.0); MPV 8.2 fl. (7.2-11.1); RBC 4.45 mil/uL (4.20-5.00)
[2019-02-02 04:26] LABS: HEMATOCRIT 42.5 % (37.0-47.0); HEMOGLOBIN 13.9 gm/dL (12.0-15.0); MCHC 32.6 g/dL (28.0-37.0); MCV 95.5 fL (80.0-100.0); NUCLEATED RBCS 0 /100WBC; PLATELET COUNT* 274 thou/uL (150-400); RDW-CV 15.9 % (10.5-14.5); WBC 11.3 thou/uL (4.0-11.0)
[2019-02-02 04:49] LABS: ANION GAP 4 mmol/L (7-16); BUN 16 mg/dL (7-18); CALCIUM 8.5 mg/dL (8.5-10.1); CHLORIDE 104 mmol/L (98-107); CO2 36 mmol/L (21-32); CREATININE 0.7 mg/dL (0.6-1.3); GLUCOSE 134 mg/dL (70-99); SODIUM 144 mmol/L (136-145); TROPONIN-I LEVEL <0.06 ng/mL (<0.06)
[2019-02-02 06:14] LABS: ABSOLUTE LYMPHOCYTES 0.5 thou/uL (0.8-5.3); ABSOLUTE MONOCYTES 0.1 thou/uL (0.0-1.2); ABSOLUTE NEUTROPHILS 10.7 thou/uL (1.6-8.1); PLATELET ESTIMATE ADEQUATE
[2019-02-02 06:15] LABS: ANISOCYTOSIS 1+; POIKILOCYTOSIS 1+
[2019-02-02 07:30] VITALS: BP 124/76
--- NOTE | 2019-02-02 07:53 | NUR ---
PATIENT HAS SLEPT WELL THROUGHOUT THE NIGHT. VSS ON 3L 02 VIA NASAL CANNULA. PATIENT UP AD-BETO AND STEADY. NO C/O PAIN. IV IN RIGHT AC-SL. BLOOD CULTURES PENDING. PATIENT INSTRUCTED TO USE CALL LIGHT WHEN NEEDING ASSISTANCE. HOURLY ROUNDS MADE. WILL CONTINUE WITH PLAN OF CARE AND NURSING TO MONITOR.
[2019-02-02 15:00] LABS: URINE BILIRUBIN NEGATIVE (Negative); URINE BLOOD NEGATIVE (Negative); URINE CLARITY CLEAR; URINE COLOR YELLOW; URINE GLUCOSE-RANDOM NEGATIVE (Negative); URINE KETONES NEGATIVE (Negative); URINE LEUKOCYTES-REFLEX NEGATIVE (Negative); URINE NITRITE-REFLEX NEGATIVE (Negative); URINE PROTEIN NEGATIVE (Negative); URINE SPECIFIC GRAVITY 1.025 (1.005-1.030); URINE UROBILINOGEN 0.2 E.U./dl (0.2-1.0)
[2019-02-02 16:50] VITALS: BP 159/82
--- NOTE | 2019-02-02 16:50 | NUR ---
SPOKE WITH PT. DAUGHTER AT BEDSIDE. 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 IT WAS TOO HARD ON HER AND SHE COULDN'T DO IT WITH HER BREATHING THE WAY IT IS. [facility] AND PORTABLES. SHE NORMALLY WEARS 3-4LITERS AT HOME. ALSO HAS A NEBULIZER. SHE IS INDEPENDENT AT HOME. DAUGHTER LIVES WITH HER AND ASSISTS HER NEEDED. SHE WAS INQUIRING ABOUT A NEBULIZER THAT PLUGS INTO THE CIGARETTE LIP OF SHANK CUTTER IN THE CAR. CM WILL CHECK WITH [facility] TO SEE IF THEY HAVE ANYTHING AVAILABLE LIKE THIS.
--- NOTE | 2019-02-02 18:04 | NUR ---
ASSUMED CARE OF PATIENT AT APPROX 0730. ALERT AND ORIENTED X4. ASSESSMENT COMPLETED AND CHARTED. VSS ON 4 LITERS 02. NO COMPLAINTS OF PAIN, NAUSEA, OR SOA. UP AD BETO IN THE ROOM. HOURLY ROUNDS COMPLETED. CALL LIGHT WITHIN REACH. NURSING WILL CONTINUE TO MONITOR.
[2019-02-02 20:00] VITALS: BP 133/79
[2019-02-03 04:08] LABS: ABSOLUTE LYMPHOCYTES 0.5 thou/uL (0.8-5.3); ABSOLUTE MONOCYTES 0.5 thou/uL (0.0-1.2); ABSOLUTE NEUTROPHILS 13.8 thou/uL (1.6-8.1); BASOPHILS 0.1 %; HEMATOCRIT 42.1 % (37.0-47.0); HEMOGLOBIN 13.8 gm/dL (12.0-15.0); LYMPHOCYTES 3.1 %; MCH 31.4 pg (26.0-34.0); MCHC 32.7 g/dL (28.0-37.0); MONOCYTES 3.3 %; MPV 8.1 fl. (7.2-11.1); NUCLEATED RBCS 0 /100WBC; PLATELET COUNT* 289 thou/uL (150-400); POLYS 93.5 %; RBC 4.39 mil/uL (4.20-5.00); WBC 14.8 thou/uL (4.0-11.0)
[2019-02-03 04:20] LABS: CALCIUM 8.4 mg/dL (8.5-10.1); CREATININE 0.6 mg/dL (0.6-1.3); POTASSIUM 4.2 mmol/L (3.5-5.1)
--- NOTE | 2019-02-03 05:25 | NUR ---
ASSUMED CARE OF PT AT 1900 PT ALERT AND ORIENTED X4 VS AND ASSESSMENT STABLE. PT DENIED ANY COMPLAINTS AND SLEPT THROUGH THE NIGHT. WILL CONTINUE PLAN OF CARE.
[2019-02-03 07:40] VITALS: BP 151/85
[2019-02-03] MEDS ORDERED: DOXYCYCLINE 10100 MG PO (08:20)
[2019-02-03] MEDS ORDERED: PREDNISONE 10 M10 MG PO (08:20)
[2019-02-03] MEDS ORDERED: IPRAT-ALBUT 0.5-3 ML INH (08:20)
[2019-02-03] MEDS ORDERED: PULMICORT0.5 MG/22 INH (08:20)
[2019-02-03 12:28] VITALS: BP 151/85
--- NOTE | 2019-02-03 12:40 | NUR ---
TELEPHONE ORDER SUPERVISOR FAXED PATIENT'S D/C ORDERS TO [facility]. D/C DATA INTEGRATION DEVELOPER SPOKE TO [facility] TO DISCUSS AVAILABILITY OF PORTABLE NEBULIZER FOR THE PATIENT, AND HENRY INFORMS THAT THE PORTABLE NEBULIZER IS AVAUILABLE IF THE PATIENT'S NEBULIZER IS 5 YEARS OLD, OTHERWISE THE PATIENT WOULD NEED PAY FOR IT [id number]. D/C DATA INTEGRATION DEVELOPER INFORMED THE PATIENT OF THIS INFO AND SHE IS IN AGREEMENT. D/C DATA INTEGRATION DEVELOPER INFORMED DR BLOCK OF THE NEED FOR AN ORDER FOR THE PORTABLE NEBULIZER. CM WILL REMAIN AVAILABLE TO ASSIST AND FOLLOW NEEDED.
--- NOTE | 2019-02-03 15:34 | NUR ---
PT.TO DISCHARGE TODAY. DOES NOT HAVE PORTABLE TANK IN ROOM . JUAN DIEGO CALLED [facility] [phone]. THEY WILL DELIVER A PORTABLE TO PT.ROOM WITHIN THE HR.
--- NOTE | 2019-02-03 15:59 | NUR ---
ASSUMED CARE OF PATIENT AT APPROX 0730. ALERT AND ORIENTED X4. ASSESSMENT COMPLETED AND CHARTED. VSS ON 4 LITERS 02. NO COMPLAINTS OF PAIN, NAUSEA, OR SOA. ANXIETY MANAGED WITH ORAL MEDICATION. ANTIBIOTICS INFUSED AND RESPIRATOEY TREATMENTS GIVEN ORDERED. PATIENT DISCHARGED AT 1545 WITH ALL PERSONAL BELONGINGS, PORTABLE OXYGEN TANK BROUGHT BY ALEJANDRO, PRESCRIPTIONS AND DISCHARGE INFORMATION.
== END 2019-02-03 15:45 | disposition home health service (06) | DRG 871 ==
LOC: M.ERS 20:39 → M.ORTHSURG 22:03 → M.TBA-ER 22:03 → M.ORTHSURG 02-01 00:12
PROVIDERS: Emergency Medicine; Internal Medicine; ADMIT Internal Medicine
DX: A41.9 Sepsis, unspecified organism (principal); J15.6 Pneumonia due to other Gram-negative bacteria; J96.21 Acute and chronic respiratory failure with hypoxia; J96.22 Acute and chronic respiratory failure with hypercapnia; J44.1 Chronic obstructive pulmonary disease with (acute) exacerbation; I10 Essential (primary) hypertension; F17.210 Nicotine dependence, cigarettes, uncomplicated; F41.9 Anxiety disorder, unspecified; Z91.19 Patient's noncompliance with other medical treatment and regimen; Z79.899 Other long term (current) drug therapy

== ENCOUNTER 2019-08-22 17:38 | Emergency (ER) | payer OTHER ==
[~2019-08-22] VITALS: Ht 167.6 cm; Wt 87.1 kg
[~2019-08-22 17:38] MED LIST changes: +BREO ELLIPTA 21 EACH INH; +DOXYCYCLINE 10100 MG PO; +IPRAT-ALBUT 0.5-3 ML INH; +PULMICORT0.5 MG/22 INH
[2019-08-22] MEDS ORDERED: ASPIR 8181 MG PO (17:57)
[2019-08-22 18:23] LABS: ABSOLUTE EOSINOPHILS 0.1 thou/uL (0.0-0.7); ABSOLUTE LYMPHOCYTES 0.9 thou/uL (0.8-5.3); ABSOLUTE MONOCYTES 1.2 thou/uL (0.0-1.2); ABSOLUTE NEUTROPHILS 13.4 thou/uL (1.6-8.1); BASOPHILS 0.3 %; EOSINOPHILS 0.8 %; HEMATOCRIT 46.6 % (37.0-47.0); HEMOGLOBIN 15.9 gm/dL (12.0-15.0); MCHC 34.1 g/dL (28.0-37.0); MCV 93.9 fL (80.0-100.0); MONOCYTES 7.9 %; MPV 8.6 fl. (7.2-11.1); NUCLEATED RBCS 0 /100WBC; PLATELET COUNT* 202 thou/uL (150-400); RBC 4.96 mil/uL (4.20-5.00); RDW-CV 15.8 % (10.5-14.5); WBC 15.8 thou/uL (4.0-11.0)
[2019-08-22 18:30] LABS: ANION GAP 8 mmol/L (7-16); BUN 5 mg/dL (7-18); CALCIUM 8.7 mg/dL (8.5-10.1); CHLORIDE 100 mmol/L (98-107); CO2 30 mmol/L (21-32); CREATININE 0.6 mg/dL (0.6-1.3); GLUCOSE 112 mg/dL (70-99); POTASSIUM 3.7 mmol/L (3.5-5.1); SODIUM 138 mmol/L (136-145)
[2019-08-22 18:42] LABS: ALBUMIN 2.9 g/dL (3.4-5.0); ALKALINE PHOSPHATASE 120 U/L (46-116); LIPASE 84 U/L (73-393); SGOT 24 U/L (15-37); SGPT 28 U/L (30-65); TOTAL BILIRUBIN 0.5 mg/dL (<0.1-1.0); TOTAL PROTEIN 7.1 g/dL (6.4-8.2); TROPONIN-I LEVEL <0.06 ng/mL (<0.06)
[2019-08-22] MEDS ORDERED: KEFLEX500 M1 PO (18:53)
[2019-08-22] MEDS ORDERED: PREDNISONE 20 M20 MG PO (18:53)
[2019-08-22] MEDS ORDERED: IPRAT-ALBUT 0.5-3 ML INH (18:53)
[2019-08-22 19:06] VITALS: BP 139/67
--- NOTE | 2019-08-23 11:08 | EKG ---
[place] [address] ELECTROCARDIOGRAM REPORT Name: BARBARAKWASI YONY Room: [facility]#: [id number] Admission: 08/22/19 Attend Phys: Discharge: 08/22/19 Date of : 56 Report #: [id number] THIS REPORT FOR: //name// [facility] ED Test Date: 2019-08-22 Test Time: 18:40:34 Pat Name: KWASI JIMENEZ Department: Room: Gender: F Physician Specialist: BREANA : 1960 Requested By: Gary Panda Order Number: [id number] MD: Jose Ashford Measurements Intervals [place] Rate: 122 P: 67 FL: 167 QRS: 71 QRSD: 82 T: 88 QT: 317 QTc: 452 Interpretive Statements Sinus tachycardia Multiple atrial premature complexes Nonspecific T abnrm, anterolateral leads Compared to ECG 01/31/2019 21:03:37 Right ventricular hypertrophy no longer present Electronically Signed On 08-23-2019 11:08:31 CDT by Jose Ashford [email or web address] <ELECTRONICALLY SIGNED> By: Jose Ashford MD, [facility] 08/23/19 1108 1840 1840 Jose Ashford MD, [facility] /EPI
== END 2019-08-22 19:08 | disposition home or self-care (01) ==
LOC: M.ERS 17:38
PROVIDERS: Physician Assistant
DX: J44.1 Chronic obstructive pulmonary disease with (acute) exacerbation (principal); I10 Essential (primary) hypertension; F17.210 Nicotine dependence, cigarettes, uncomplicated; Z88.6 Allergy status to analgesic agent; Z98.890 Other specified postprocedural states

== ENCOUNTER 2019-10-14 14:19 | Emergency (ER) | payer OTHER ==
[~2019-10-14] VITALS: Ht 167.6 cm; Wt 86.6 kg
[~2019-10-14 14:19] MED LIST changes: +ASPIR 8181 MG PO; +KEFLEX500 M1 PO; +PREDNISONE 20 M20 MG PO
[2019-10-14] MEDS ORDERED: XANAX1 MG PO (14:35)
[2019-10-14 14:59] LABS: ABSOLUTE BASOPHILS 0.1 thou/uL (0.0-0.2); ABSOLUTE EOSINOPHILS 0.1 thou/uL (0.0-0.7); ABSOLUTE LYMPHOCYTES 1.1 thou/uL (0.8-5.3); ABSOLUTE MONOCYTES 0.6 thou/uL (0.0-1.2); ABSOLUTE NEUTROPHILS 7.2 thou/uL (1.6-8.1); BASOPHILS 0.7 %; EOSINOPHILS 1.6 %; HEMATOCRIT 50.8 % (37.0-47.0); HEMOGLOBIN 17.1 gm/dL (12.0-15.0); LYMPHOCYTES 12.1 %; MCH 31.9 pg (26.0-34.0); MCHC 33.7 g/dL (28.0-37.0); MCV 94.6 fL (80.0-100.0); MONOCYTES 6.8 %; MPV 9.3 fl. (7.2-11.1); NUCLEATED RBCS 0 /100WBC; PLATELET COUNT* 202 thou/uL (150-400); POLYS 78.8 %; RBC 5.37 mil/uL (4.20-5.00); RDW-CV 15.8 % (10.5-14.5); WBC 9.1 thou/uL (4.0-11.0)
[2019-10-14 15:10] LABS: CALCIUM 8.6 mg/dL (8.5-10.1); CREATININE 0.6 mg/dL (0.6-1.3); POTASSIUM 3.7 mmol/L (3.5-5.1)
[2019-10-14 15:27] LABS: ALBUMIN 3.3 g/dL (3.4-5.0); MAGNESIUM 1.9 mg/dL (1.8-2.4); TOTAL BILIRUBIN 0.6 mg/dL (<0.1-1.0); TOTAL PROTEIN 7.3 g/dL (6.4-8.2)
[2019-10-14] MEDS ORDERED: PREDNISONE50 MG PO (15:38)
[2019-10-14] MEDS ORDERED: VENTOLIN HFA 1818 GM INH (15:38)
[2019-10-14] MEDS ORDERED: ALBUTEROL2.5 MG/31 INH (15:38)
[2019-10-14 16:26] VITALS: BP 154/80
--- NOTE | 2019-10-15 10:19 | EKG ---
[place] [address] ELECTROCARDIOGRAM REPORT Name: BARBARAKWASI YONY Room: [facility]#: [id number] Admission: 10/14/19 Attend Phys: Discharge: 10/14/19 Date of : 56 Report #: [id number] THIS REPORT FOR: //name// [facility] ED Test Date: 2019-10-14 Test Time: 14:59:35 Pat Name: KWASI JIMENEZ Department: Room: Gender: F Bulk Coolers Installer: YUMIKO : 1960 Requested By: Jonathon Luque Order Number: [id number] MD: Ramy Calzada Measurements Intervals [place] Rate: 91 P: 57 DC: 153 QRS: 53 QRSD: 86 T: 53 QT: 371 QTc: 457 Interpretive Statements Sinus rhythm RSR' in V1 or V2, probably normal variant Compared to ECG 08/22/2019 18:40:34 RSR' in V1 or V2 now present Sinus tachycardia no longer present Atrial premature complex(es) no longer present Electronically Signed On 10-15-2019 10:19:24 SENIOR INSIGHT MANAGER by Ramy Calzada [email or web address] <ELECTRONICALLY SIGNED> By: Ramy Calzada MD, FACC 10/15/19 1019 1459 1459 Ramy Calzada MD, [facility] /EPI
== END 2019-10-14 16:27 | disposition home or self-care (01) ==
LOC: M.ERS 14:19
PROVIDERS: Emergency Medicine Emergency Medical Services
DX: J44.1 Chronic obstructive pulmonary disease with (acute) exacerbation (principal); F17.210 Nicotine dependence, cigarettes, uncomplicated; I10 Essential (primary) hypertension; J96.10 Chronic respiratory failure, unspecified whether with hypoxia or hypercapnia; Z88.6 Allergy status to analgesic agent

== ENCOUNTER 2019-11-06 16:58 | Emergency (ER) | payer OTHER ==
[~2019-11-06] VITALS: Ht 167.6 cm; Wt 81.7 kg
[~2019-11-06 16:58] MED LIST changes: +ALBUTEROL2.5 MG/31 INH; +XANAX1 MG PO
[2019-11-06 17:50] LABS: BE 6.5 mmol/L (-2 to +3); PO2 80.2 mmHg (75.0-100.0); pH 7.355 (7.340-7.450)
[2019-11-06 17:52] LABS: PCO2 63.9 mmHg (35.0-45.0)
[2019-11-06 18:07] LABS: ABSOLUTE LYMPHOCYTES 0.8 thou/uL (0.8-5.3); ABSOLUTE MONOCYTES 0.7 thou/uL (0.0-1.2); ABSOLUTE NEUTROPHILS 4.3 thou/uL (1.6-8.1); BASOPHILS 0.5 %; EOSINOPHILS 0.8 %; HEMATOCRIT 51.1 % (37.0-47.0); LYMPHOCYTES 14.3 %; MCH 31.1 pg (26.0-34.0); MCHC 33.3 g/dL (28.0-37.0); MCV 93.6 fL (80.0-100.0); MONOCYTES 11.7 %; MPV 8.7 fl. (7.2-11.1); NUCLEATED RBCS 0 /100WBC; PLATELET COUNT* 162 thou/uL (150-400); POLYS 72.7 %; RBC 5.46 mil/uL (4.20-5.00); RDW-CV 15.2 % (10.5-14.5); WBC 5.9 thou/uL (4.0-11.0)
[2019-11-06 18:17] LABS: CALCIUM 8.9 mg/dL (8.5-10.1); CREATININE 0.6 mg/dL (0.6-1.3); POTASSIUM 3.8 mmol/L (3.5-5.1)
[2019-11-06 18:31] LABS: TOTAL BILIRUBIN 0.4 mg/dL (<0.1-1.0); TOTAL PROTEIN 6.9 g/dL (6.4-8.2)
[2019-11-06] MEDS ORDERED: SPIRIVA18 MCG INH (19:06)
[2019-11-06] MEDS ORDERED: PREDNISONE 10 M10 MG PO (19:06)
[2019-11-06] MEDS ORDERED: ALBUTEROL2.5 MG/31 INH (19:06)
[2019-11-06] MEDS ORDERED: PROAIR HFA8.5 GM INH (19:06)
[2019-11-06] MEDS ORDERED: HYDROXYZINE HCL50 MG PO (19:06)
[2019-11-06 19:26] VITALS: BP 136/81
--- NOTE | 2019-11-07 14:00 | EKG ---
[place] [address] ELECTROCARDIOGRAM REPORT Name: KWASI JIMENEZ Room: [facility]#: [id number] Admission: 11/06/19 Attend Phys: Discharge: 11/06/19 Date of : 56 Report #: [id number] THIS REPORT FOR: //name// [facility] ED Test Date: 2019-11-06 Test Time: 17:27:12 Pat Name: KWASI JIMENEZ Department: Room: Gender: F Bulk Delivery Driver: : 1960 Requested By: Selena Torres Order Number: [id number] Dinah MD: Ramy Calzada Measurements Intervals [place] Rate: 106 P: 71 MT: 144 QRS: 91 QRSD: 101 T: 56 QT: 361 QTc: 480 Interpretive Statements Sinus tachycardia incomplete RBBB Ventricular premature complex Compared to ECG 10/14/2019 14:59:35 Ventricular premature complex(es) now present Sinus rhythm no longer present Electronically Signed On 11-07-2019 14:00:21 RAMP BOSS by Ramy Calzada [email or web address] <ELECTRONICALLY SIGNED> By: Ramy Calzada MD, [facility] 11/07/19 1400 1727 172 Ramy Calzada MD, [facility] /EPI
== END 2019-11-06 19:31 | disposition home or self-care (01) ==
LOC: M.ERS 16:58
PROVIDERS: Physician Assistant
DX: J44.1 Chronic obstructive pulmonary disease with (acute) exacerbation (principal); I10 Essential (primary) hypertension; F41.9 Anxiety disorder, unspecified; F17.210 Nicotine dependence, cigarettes, uncomplicated; Z98.890 Other specified postprocedural states

== ENCOUNTER 2019-11-16 13:01 | Emergency (ER) | payer OTHER ==
[~2019-11-16] VITALS: Ht 167.6 cm; Wt 81.7 kg
[~2019-11-16 13:01] MED LIST changes: +HYDROXYZINE HCL50 MG PO; +SPIRIVA18 MCG INH
[2019-11-16] MEDS ORDERED: PROAIR HFA8.5 GM INH (13:35)
[2019-11-16] MEDS ORDERED: IPRAT-ALBUT 0.5-3 ML INH (13:37)
[2019-11-16] MEDS ORDERED: ALBUTEROL2.5 MG/31 INH (13:37)
[2019-11-16] MEDS ORDERED: PREDNISONE 10 M10 MG PO (14:03)
[2019-11-16] MEDS ORDERED: XANAX 0.5 MG0.5 MG PO (14:03)
[2019-11-16 14:06] VITALS: BP 162/70
== END 2019-11-16 14:07 | disposition home or self-care (01) ==
LOC: M.ERS 13:01
DX: J44.9 Chronic obstructive pulmonary disease, unspecified (principal); F41.9 Anxiety disorder, unspecified; Z76.0 Encounter for issue of repeat prescription; I10 Essential (primary) hypertension; F17.210 Nicotine dependence, cigarettes, uncomplicated; Z98.890 Other specified postprocedural states

== ENCOUNTER 2020-08-28 15:57 | Inpatient (IN) | payer OTHER ==
[2020-08-28] VITALS (18 sets, daily range): BP systolic 89–184; BP diastolic 51–110
[~2020-08-28] VITALS: Ht 162.6 cm; Wt 73.1 kg
[~2020-08-28 15:57] MED LIST changes: +XANAX 0.5 MG0.5 MG PO
[2020-08-28 16:29] LABS: HEMATOCRIT 54.8 % (37.0-47.0); HEMOGLOBIN 17.8 gm/dL (12.0-15.0); MCH 31.8 pg (26.0-34.0); MCHC 32.5 g/dL (28.0-37.0); MCV 97.7 fL (80.0-100.0); MPV 8.8 fl. (7.2-11.1); NUCLEATED RBCS 0 /100WBC; PLATELET COUNT* 118 thou/uL (150-400); RBC 5.61 mil/uL (4.20-5.00); RDW-CV 17.2 % (10.5-14.5); WBC 9.1 thou/uL (4.0-11.0)
[2020-08-28 16:39] LABS: BUN 5 mg/dL (7-18); CALCIUM 8.5 mg/dL (8.5-10.1); CHLORIDE 100 mmol/L (98-107); CREATININE 0.5 mg/dL (0.6-1.3); GLUCOSE 119 mg/dL (70-99); POTASSIUM 4.1 mmol/L (3.5-5.1); SODIUM 144 mmol/L (136-145)
[2020-08-28 16:40] LABS: APTT 28.2 Seconds (25.0-31.3); INR 1.4; PROTIME 14.6 Seconds (9.20-11.50)
[2020-08-28 16:44] LABS: BE 7.1 mmol/L (-2 to +3)
[2020-08-28 16:46] LABS: CO2 > 45 mmol/L (21-32)
[2020-08-28 16:48] LABS: PCO2 142.1 mmHg (35.0-45.0); pH 7.113 (7.340-7.450)
[2020-08-28 16:49] LABS: PO2 347.2 mmHg (75.0-100.0)
[2020-08-28 16:50] LABS: ALBUMIN 3.2 g/dL (3.4-5.0); ALKALINE PHOSPHATASE 93 U/L (46-116); LIPASE 143 U/L (73-393); NT-PRO BRAIN NAT PEPTIDE 229 pg/mL (<300); SGOT 17 U/L (15-37); SGPT 19 U/L (30-65); TOTAL BILIRUBIN 0.6 mg/dL (<0.1-1.0)
[2020-08-28 17:33] LABS: ABSOLUTE LYMPHOCYTES 0.9 thou/uL (0.8-5.3); ABSOLUTE MONOCYTES 0.4 thou/uL (0.0-1.2); ABSOLUTE NEUTROPHILS 7.8 thou/uL (1.6-8.1); PLATELET ESTIMATE DECREASED
[2020-08-28] MEDS ORDERED: ZOLOFT 50 MG TA50 M1 PO (21:00)
[2020-08-28] MEDS ORDERED: XANAX1 MG PO (21:00)
[2020-08-28] MEDS ORDERED: ULTRAM 50MG TAB50 MG PO (21:01)
[2020-08-28 21:34] LABS: BE 7.9 mmol/L (-2 to +3); PO2 94.1 mmHg (75.0-100.0); pH 7.402 (7.340-7.450)
[2020-08-28 21:39] LABS: PCO2 57.8 mmHg (35.0-45.0)
[2020-08-29] VITALS (66 sets, daily range): BP systolic 89–149; BP diastolic 54–85
[2020-08-29 05:41] LABS: HEMATOCRIT 47.8 % (37.0-47.0); MCHC 32.3 g/dL (28.0-37.0); RBC 4.98 mil/uL (4.20-5.00); RDW-CV 17.2 % (10.5-14.5); WBC 6.5 thou/uL (4.0-11.0)
[2020-08-29 05:47] LABS: HEMOGLOBIN 15.4 gm/dL (12.0-15.0)
[2020-08-29 05:55] LABS: ALBUMIN 2.4 g/dL (3.4-5.0); CALCIUM 7.7 mg/dL (8.5-10.1); CREATININE 0.5 mg/dL (0.6-1.3); MAGNESIUM 1.5 mg/dL (1.8-2.4); POTASSIUM 3.8 mmol/L (3.5-5.1); TOTAL BILIRUBIN 0.8 mg/dL (<0.1-1.0)
[2020-08-29 15:02] LABS: BE 4.5 mmol/L (-2 to +3); PCO2 41.2 mmHg (35.0-45.0); pH 7.461 (7.340-7.450)
[2020-08-29 15:04] LABS: PO2 54.5 mmHg (75.0-100.0)
--- NOTE | 2020-08-29 17:45 | EKG ---
[place] [address] ELECTROCARDIOGRAM REPORT Name: MEGANVALERIMAYIKWASI YONY Room: [address] ADM IN .R.#: [id number] Admission: 08/28/20 Attend Phys: Mayra Bass, Discharge: Date of : 56 Date of Service: 08/28/20 1621 Report #: [id number] THIS REPORT FOR: //name// [facility] ED Test Date: 2020-08-28 Test Time: 16:21:21 Pat Name: KWASI JIMENEZ Department: Room: [facility] Gender: F Wool Washer Feeder: TDS : 1960 Requested By: Jamar Brunson Order Number: [id number] MD: Jose Ashford Measurements Intervals [place] Rate: 100 P: 85 WI: 159 QRS: 62 QRSD: 80 T: 50 QT: 340 QTc: 439 Interpretive Statements Sinus tachycardia Low voltage, extremity leads Incomplete right bundle branch block Baseline wander in lead(s) II,III,aVR,aVL,aVF Compared to ECG 11/06/2019 17:27:12 Low QRS voltage now present Ventricular premature complex(es) no longer present Electronically Signed On 08-29-2020 17:44:56 CDT by Jose Ashford [email or web address] <ELECTRONICALLY SIGNED> By: Jose Ashford MD, FACC 08/29/20 1744 20 162 Jose Ashford MD, FACC /EPI
[2020-08-30] VITALS (33 sets, daily range): BP systolic 114–177; BP diastolic 63–112
[2020-08-30 07:08] LABS: HEMATOCRIT 52.1 % (37.0-47.0); HEMOGLOBIN 17.1 gm/dL (12.0-15.0); MCH 31.1 pg (26.0-34.0); MCHC 32.8 g/dL (28.0-37.0); MCV 94.8 fL (80.0-100.0); MPV 9.4 fl. (7.2-11.1); RBC 5.5 mil/uL (4.20-5.00); RDW-CV 17.3 % (10.5-14.5); WBC 6.7 thou/uL (4.0-11.0)
[2020-08-30 07:11] LABS: CALCIUM 8.2 mg/dL (8.5-10.1); CREATININE 0.6 mg/dL (0.6-1.3); POTASSIUM 3.7 mmol/L (3.5-5.1)
--- NOTE | 2020-08-30 12:19 | CON ---
[address] [address] CONSULTATION Name: KWASI JIMENEZ Room: [address] IN M.R.#: [id number] Admission: 08/28/20 Attend Phys: Mayra Bass MD Discharge: Date of : 56 Report #: [id number] THIS REPORT FOR: //name// cc: ZOE Pagan family physician/PCP ZOE Pagan family physician/PCP ~ THIS REPORT FOR: //name// DATE OF SERVICE: 08/29/2020 CONSULT REQUESTED BY: Dr. Bass. INDICATION FOR CONSULTATION: Vgujg-xj-mdlkszu hypercarbic and hypoxemic respiratory failure. HISTORY OF PRESENT ILLNESS: This is a 60-year-old female with extensive history of smoking, admitted with acute hypercarbic respiratory failure, is on the ventilator, reported to have presented with acute shortness of breath after being sick for a few days. Overnight, has been on Versed, fentanyl as well as propofol infusions and initially was hypotensive, now blood pressure is within the normal range. She has been fluid resuscitated with normal saline. The patient is currently stable on the ventilator. The patient is unable to provide a further history or review of systems. PAST MEDICAL HISTORY: COPD, on oxygen long-term, unknown as to whether she is on any positive airway pressure therapy at home. Hypertension, , previous echo shows normal left ventricular ejection fraction without significant elevation in right heart pressures. SOCIAL HISTORY: Extensive history of smoking, unable to quantify exactly at this time. No known history of heavy alcohol use or illegal drug use. CURRENT MEDICATIONS: List in [facility] reviewed. HOME MEDICATIONS: List in [facility] reviewed. FAMILY HISTORY: No known pertinent family history. PHYSICAL EXAMINATION: GENERAL: The patient is on Versed and fentanyl as well as propofol infusion. She is on the ventilator. She is oxygenating and ventilating adequately with 40% FiO2, assist control ventilation, PEEP of 5. Ventilator settings in [facility] reviewed. VITAL SIGNS: In [facility] reviewed. HEENT: There is an endotracheal tube in place. Head is normocephalic and atraumatic. I am uncertain as to where the endotracheal tube [place] [address] CONSULTATION Name: KWASI JIMENEZ Room: [address] IN [facility].#: [id number] Admission: 08/28/20 Attend Phys: Mayra Bass MD Discharge: Date of : 56 Report #: [id number] NECK: Does not show raised JVP, asymmetry, mass or lymph nodes. CHEST: Symmetrical expansion on inspection and palpation. On auscultation, breath sounds bilaterally equal, decreased. No added sounds. HEART: Regular, no murmur. ABDOMEN: Soft and nontender. EXTREMITIES: Lower extremities show no edema, no calf tenderness. SKIN: Dry and intact. NEUROLOGICAL: Moves all extremities bilaterally equally and spontaneously with no focal deficit identified. LABORATORY DATA: The patient's chest x-ray initially did show a radiopaque density in the right lung base consistent with an infiltrate or atelectasis, which improved subsequently making it unlikely that there is pneumonia. Chest x-ray looks worse today. I feel there is likely secondary to mild increase in pulmonary vascular congestion. Viral or atypical pneumonia can also lead to this picture. Lab work including arterial blood gases in [facility] reviewed. ASSESSMENT AND PLAN: 1. Fzxxb-tn-vtzzvml hypoxemic and hypercarbic respiratory failure. The patient is currently stable on the ventilator. I could have considered extubating her today; however, her COVID PCR is pending. The patient currently is not in a negative pressure room. If we were to extubate her, she will likely need a BiPAP today, which is not a viable option. Therefore, I decided to leave her on the ventilator. I would like to try to take her off the Versed infusion. We will start Precedex. We will continue with fentanyl. If these were not sufficient to that as long as she is not hypotensive, she could be given propofol as well. We will give her p.r.n. Versed. We will reassess tomorrow for extubation. We will do an arterial blood gas today. We will request the radiologist to comment on the ET tube position. 2. Chronic obstructive pulmonary disease exacerbation. Current dose of steroids as well as nebulized bronchodilators. 3. Pulmonary infiltrates. I feel these are more likely secondary to increase in pulmonary vascular congestion than actual pneumonia. Regardless, I agree with covering with Zithromax as well as ceftriaxone and checking a COVID PCR. We will do a sputum culture and nasal swab for methicillin-resistant Staphylococcus aureus as well. I discontinued her saline. In case she was to become hypotensive, she will tolerate fluids while she is on the ventilator if needed. 4. Evaluation for thromboembolic phenomena. We will do a D-dimer. If elevated, then we will assess as to whether we need to evaluate further. Once she is off of COVID isolation, may also consider obtaining an echo. 5. Deep venous thrombosis prophylaxis, Lovenox. 6. Gastrointestinal prophylaxis, Protonix. The patient is [place] [address] CONSULTATION Name: KWASI JIMENEZ Room: [address]#: [id number] Admission: 08/28/20 Attend Phys: Mayra Bass MD Discharge: Date of : 56 Report #: [id number] Total time spent providing critical care to this patient today is about 41 minutes. <ELECTRONICALLY SIGNED> By: Chintan Belcher MD 08/30/20 1219 1312 1330Chintan Belcher MD /nt
[2020-08-30 14:44] LABS: PO2 79.4 mmHg (75.0-100.0); pH 7.401 (7.340-7.450)
[2020-08-30 14:47] LABS: PCO2 52.2 mmHg (35.0-45.0)
--- NOTE | 2020-08-30 15:47 | EKG ---
[place] [address] ELECTROCARDIOGRAM REPORT Name: BRIGITTE JIMENEZTHIMichelle BHAKTA Room: [address] ADM IN M.R.#: [id number] Admission: 08/28/20 Attend Phys: Mayra Bass, Discharge: Date of : 56 Date of Service: 08/30/20 0919 Report #: [id number] THIS REPORT FOR: //name// [facility] Test Date: 2020-08-30 Test Time: 09:19:24 Pat Name: KWASI JIMENEZ Department: Room: [address] Gender: F Ccie: TERESSA : 1960 Requested By: Sree Benson Order Number: [id number] Dinah MD: Jose Ashford Measurements Intervals [place] Rate: 117 P: 89 DC: 103 QRS: 68 QRSD: 100 T: 55 QT: 353 QTc: 493 Interpretive Statements Sinus tachycardia Borderline low voltage, extremity leads Incomplete right bundle branch block borderline ST depression, lateral leads Borderline prolonged QT interval Compared to ECG 08/28/2020 16:21:21 RSR' in V1 or V2 now present ST (T wave) deviation now present Electronically Signed On 08-30-2020 15:47:46 CDT by Jose Ashford [email or web address] <ELECTRONICALLY SIGNED> By: Jose Ashford MD, FACC 08/30/20 1547 8 8 Jose Ashford MD, FACC /EPI
[2020-08-31] VITALS (21 sets, daily range): BP systolic 136–174; BP diastolic 82–112
[2020-08-31 05:27] LABS: ABSOLUTE LYMPHOCYTES 0.2 thou/uL (0.8-5.3); ABSOLUTE MONOCYTES 0.6 thou/uL (0.0-1.2); BASOPHILS 0.2 %; HEMATOCRIT 50.9 % (37.0-47.0); HEMOGLOBIN 16.9 gm/dL (12.0-15.0); LYMPHOCYTES 1.8 %; MCH 31.2 pg (26.0-34.0); MCHC 33.1 g/dL (28.0-37.0); MCV 94.4 fL (80.0-100.0); MONOCYTES 6.4 %; NUCLEATED RBCS 0 /100WBC; PLATELET COUNT* 110 thou/uL (150-400); POLYS 91.6 %; RBC 5.39 mil/uL (4.20-5.00); RDW-CV 17.2 % (10.5-14.5); WBC 9.8 thou/uL (4.0-11.0)
[2020-08-31 05:52] LABS: PHOSPHORUS* 4.1 mg/dL (2.5-4.9)
[2020-08-31 05:53] LABS: ALBUMIN 3.1 g/dL (3.4-5.0); CALCIUM 8.2 mg/dL (8.5-10.1); CREATININE 0.4 mg/dL (0.6-1.3); MAGNESIUM 2.1 mg/dL (1.8-2.4); TOTAL BILIRUBIN 0.8 mg/dL (<0.1-1.0); TOTAL PROTEIN 6.4 g/dL (6.4-8.2)
[2020-08-31] MEDS ORDERED: ROCEPHIN 11 GM/1001 IV (08:50)
[2020-08-31] MEDS ORDERED: PROTONIX IV40 MG IVPUSH (08:50)
[2020-08-31] MEDS ORDERED: METHYLPREDNISO125 MG IVPUSH (08:50)
--- NOTE | 2020-08-31 13:50 | 2DMMODE ---
[place] [address] 2 D/M-MODE ECHOCARDIOGRAM Name: KWASI JIMENEZ Room: [address] ADM IN M.R.#: [id number] Admission: 08/28/20 Attend Phys: Mayra Bass, Discharge: Date of : 56 Date of Service: 08/31/20 1350 Report #: [id number] THIS REPORT FOR: cc: FAM - No family physician/PCP FAM - No family physician/PCP Ramy Calzada MD [facility] ~ APPROVED REPORT Study performed: 08/31/2020 10:01:07 EXAM: Comprehensive 2D, Doppler, and color-flow Echocardiogram Patient Location: Bedside BSA: 1.55 HR: 75 bpm BP: 161/89 mmHg Other Information Study Quality: Good Indications Dyspnea 2D Dimensions IVSd: 11.79 (7-11mm) LVOT Diam: 16.13 (18-24mm) LVDd: 40.09 mm PWd: 9.78 (7-11mm) Ascending Ao: 29.87 (22-36mm) LVDs: 34.60 (25-40mm) Aortic Root: 26.01 mm Volumes Left Atrial Volume (Systole) LA ESV Index: 24.30 mL/m2 Aortic Valve AoV Peak Yonas.: 1.13 m/s AO Peak Gr.: 5.09 mmHg LVOT Max P.05 mmHg AO Mean Gr.: 2.70 mmHg LVOT Mean P.57 mmHg LVOT Max V: 0.87 m/s AO V2 VTI: 24.74 cm LVOT Mean V: 0.58 m/s CARLA (VTI): 1.72 cm2 LVOT V1 VTI: 20.88 cm Mitral Valve E/A Ratio: 0.98 [place] [address] 2 D/M-MODE ECHOCARDIOGRAM Name: KWASI JIMENEZ Room: [address] IN ..#: [id number] Admission: 08/28/20 Attend Phys: Mayra Bass, Discharge: Date of : 56 Date of Service: 08/31/20 1350 Report #: [id number] MV Decel. Time: 155.40 ms MV E Max Yonas.: 0.95 m/s MV PHT: 45.06 ms MVA (PHT): 4.88 cm2 TDI E/Lateral E': 13.57 E/Medial E': 11.88 Medial E' Yonas.: 0.08 m/s Lateral E' Yonas.: 0.07 m/s Pulmonary Valve PV Peak Yonas.: 0.70 m/s PV Peak Gr.: 1.97 mmHg Tricuspid Valve RAP Estimate: 5.00 mmHg TR Peak Gr.: 25.19 mmHg RVSP: 30.19 mmHg PA Pressure: 30.19 mmHg Left Ventricle The left ventricle is normal size. There is normal LV segmental wall motion. There is normal left ventricular wall thickness. Left ventricular systolic function is normal. The left ventricular ejection fraction is within the normal range. LVEF is 50-55%. Grade I - abnormal relaxation pattern. Right Ventricle The right ventricle is normal size. The right ventricular systolic function is normal. Atria The left atrium size is normal. The right atrium size is normal. Aortic Valve The aortic valve is normal in structure. No aortic regurgitation is present. There is no aortic valvular stenosis. Mitral Valve The mitral valve is normal in structure. Trace mitral regurgitation. No evidence of mitral valve stenosis. Tricuspid Valve The tricuspid valve is normal in structure. Trace tricuspid regurgitation[place] [address] 2 D/M-MODE ECHOCARDIOGRAM Name: KWASI JIMENEZ Room: [address]#: [id number] Admission: 08/28/20 Attend Phys: Mayra Bass, Discharge: Date of : 56 Date of Service: 08/31/20 1350 Report #: [id number] The pulmonary valve is normal in structure. There is no pulmonic valvular regurgitation. Great Vessels The aortic root is normal in size. Aortic arch is not visualized. IVC is normal in size and collapses >50% with inspiration. Pericardium There is no pericardial effusion. <Conclusion> Left ventricular systolic function is normal. The left ventricular ejection fraction is within the normal range. <ELECTRONICALLY SIGNED> By: Ramy Calzada MD, FACC 08/31/20 1350 1350 1350 Ramy Calzada MD, FACC /INF
== END 2020-08-31 20:42 | DRG 871 ==
LOC: M.ERS 15:57 → M.TBA-ER 17:00 → M.ICU 17:00 → M.TBA-ER 17:50 → M.ICU 19:22
PROVIDERS: Family Medicine; Internal Medicine Critical Care Medicine; ADMIT Internal Medicine; ATTEND Internal Medicine
DX: A41.9 Sepsis, unspecified organism (principal); J18.9 Pneumonia, unspecified organism; J96.21 Acute and chronic respiratory failure with hypoxia; J96.22 Acute and chronic respiratory failure with hypercapnia; J44.1 Chronic obstructive pulmonary disease with (acute) exacerbation; J44.0 Chronic obstructive pulmonary disease with (acute) lower respiratory infection; R65.20 Severe sepsis without septic shock; I10 Essential (primary) hypertension; E86.0 Dehydration; Z20.828 Contact with and (suspected) exposure to other viral communicable diseases; Z28.21 Immunization not carried out because of patient refusal; Z79.899 Other long term (current) drug therapy